=== PATIENT | male | born 1985 | race Caucasian/White ===

== ENCOUNTER 2019-01-15 19:27 | Emergency (ER) | payer OTHER, SELFPAY ==
[2019-01-15 19:35] VITALS: BP 148/92; PULSE 85; RESP 18; TEMP 37.5; O2SAT 100
--- NOTE | 2019-01-15 19:45 | ED.FEVER ---
HPI - Fever <Teresita Padilla PA-C - Last Filed: 01/15/19 21:57> General Chief Complaint: Fever Stated Complaint: back pain, headache, chills Time Seen by Provider: 01/15/19 19:44 Source: patient Mode of arrival: ambulatory Limitations: no limitations History of Present Illness HPI Narrative: This healthy 33-year-old male comes in due to body aches, chills and sweats that started last night and got worse throughout the evening. Today he has also had headache which he states radiates over his head and to the temples and around his eyes. He denies cough or sore throat. He took Aleve this morning and states he has not taken his temperature today. He states he has backache but also leg muscles sore and feels like joints are sore all over (no difficulty with ROM or any joint swelling). He states that he always has nasal congestion, not acutely worse. He has not had any diarrhea or abdominal symptoms, perhaps minimal nausea that is resolved with belching. He denies any urinary sx. No STD concerns. He has not had any rash or known exposures. No recent travel. Related Data Allergies Allergy/AdvReac Type Severity Reaction Status Date / Time Sulfa (Sulfonamide Allergy Verified 01/15/19 19:35 Antibiotics) Review of Systems <Teresita Padilla PA-C - Last Filed: 01/15/19 21:57> Review of Systems ROS Unobtainable: All systems reviewed & are unremarkable except as noted in HPI and below PFSH <Teresita Padilla PA-C - Last Filed: 01/15/19 21:57> Medical History Healthy adult male (Chronic) Surgical History Status post wisdom tooth extraction (Resolved) Social History Smoking Status: Never smoker alcohol intake: current substance use type: does not use Social History Smoking Status: Never smoker alcohol intake: current substance use type: does not use Exam <BRAYDEN Aparicio Last Filed: 01/15/19 21:57> Narrative Exam Narrative: GENERAL APPEARANCE: Patient sitting comfortably, in no distress. HEAD: No sinus TTP. EYES: PERRL, EOMI. EARS: Normal auditory canals, TMS intact with normal light reflexes. ORAL CAVITY: Normal oropharynx. THROAT: Clear. NECK/THYROID: Neck supple, full range of motion, shotty anterior cervical lymphadenopathy. LUNGS: Clear to auscultation bilaterally, no cough on exam. HEART: RRR without murmur, nl S1, S2, no S3 or S4. DERMATOLOGIC: No exanthem Initial Vital Signs Initial Vital Signs: Vital Signs Temperature 99.5 F 01/15/19 19:35 Pulse Rate 85 01/15/19 19:35 Respiratory Rate 18 01/15/19 19:35 Blood Pressure 148/92 H 01/15/19 19:35 Pulse Oximetry 100 01/15/19 19:35 <Herrera Garcia DO - Last Filed: 01/15/19 23:14> Initial Vital Signs Initial Vital Signs: Vital Signs Temperature 99.5 F 01/15/19 19:35 Pulse Rate 85 01/15/19 19:35 Respiratory Rate 18 01/15/19 19:35 Blood Pressure 148/92 H 01/15/19 19:35 Pulse Oximetry 100 01/15/19 19:35 Course <Teresita Padilla PA-C - Last Filed: 01/15/19 21:57> Orders Ordered: ED Orders 01/15/19 19:44 FLU A and B [Influenza A and B by PCR Rapid] Stat 01/15/19 21:00 Urine Microscopic Stat Discontinued Medications Acetaminophen (Tylenol) 650 mg PO NOW ONE Stop: 01/15/19 20:57 Last Admin: 01/15/19 20:58 Dose: 650 mg Vital Signs - 8 hr 01/15/19 19:35 01/15/19 20:58 01/15/19 21:13 Temperature 99.5 F 99.9 F H 99.9 F H Pulse Rate 85 Respiratory Rate 18 Blood Pressure 148/92 H Pulse Oximetry 100 01/15/19 21:39 Temperature 99.7 F H Pulse Rate Respiratory Rate Blood Pressure Pulse Oximetry <DO Ashley Renteria Last Filed: 01/15/19 23:14> Orders Ordered: ED Orders 01/15/19 19:44 FLU A and B [Influenza A and B by PCR Rapid] Stat 01/15/19 21:00 Urine Microscopic Stat Discontinued Medications Acetaminophen (Tylenol) 650 mg PO NOW ONE Stop: 01/15/19 20:57 Last Admin: 01/15/19 20:58 Dose: 650 mg Vital Signs - 8 hr 01/15/19 19:35 01/15/19 20:58 02/28/19 21:13 Temperature 99.5 F 99.9 F H 99.9 F H Pulse Rate 85 Respiratory Rate 18 Blood Pressure 148/92 H Pulse Oximetry 100 01/15/19 21:39 Temperature 99.7 F H Pulse Rate Respiratory Rate Blood Pressure Pulse Oximetry MDM - Fever <Teresita Padilla PA-C - Last Filed: 01/15/19 21:57> Lab Data Lab Results 01/15/19 01/15/19 Range/Units 19:44 21:00 Urine RBC 1-5/hpf (0-5/HPF) Urine WBC None seen (0-5/HPF) Amorphous Sediment 2+ Urine Bacteria None seen (None) Ur Culture Indicated? Cult not indicated Influenza A & B (PCR) Negative (Negative) <Herrera Garcia DO - Last Filed: 01/15/19 23:14> Lab Data Lab Results 01/15/19 01/15/19 Range/Units 19:44 21:00 Urine RBC 1-5/hpf (0-5/HPF) Urine WBC None seen (0-5/HPF) Amorphous Sediment 2+ Urine Bacteria None seen (None) Ur Culture Indicated? Cult not indicated Influenza A & B (PCR) Negative (Negative) Discharge Plan Departure Patient Disposition: Home Clinical Impression: Viral infection Discharge Date/Time: 01/15/19 21:36 Interventions: ED Discharge Assessment Last Done: 01/15/19 21:40 Instructions: DI for Viral Syndrome Activity Restrictions/Additional Instructions: You appear to have a virus similar to the flu virus although your flu test was negative today. Please take 2 tablets of Aleve every 12 hr to help with aches and any fever. This is equivalent to prescription dosing. You can add Tylenol in between as needed in addition. Rest at home for the next few days, eat normally and drink plenty of fluids. Return as we talked about if you have any acutely worsening symptoms over the weekend i.e. high fever not responding to your [id number] medicines, worsening or more localized pain, or vomiting[place] by early next week. Coincidentally there was a trace of blood noted on your urinalysis today. This may not be new for you, and no infection was found. Please repeat [place] when you are feeling better Referrals: [facility] [Provider Group] Stand Alone Forms: Work Release Note <Herrera Garcia, DO - Last Filed: 01/15/19 23:14> Cosign ED Attending Cosignature Attestation: I was available for consultation during this patient's emergency department encounter
[2019-01-15 20:41] LABS: Influenza A and B by PCR Rapid Negative (Negative)
[2019-01-15 20:58] VITALS: TEMP 37.7
[2019-01-15] MEDS: ACETAMINOPHEN 325 MG TABLET 650 MG PO (20:58)
[2019-01-15 21:02] LABS: Bacteria Urine None Seen; WBC Urine None Seen (0-5/HPF)
[2019-01-15 21:13] VITALS: TEMP 37.7
[2019-01-15 21:19] LABS: Amorphous Sediment Urine 2+; Culture Indicated Urine Cult Not Indicated; RBC Urine 1-5/HPF (0-5/HPF)
[2019-01-15 21:39] VITALS: TEMP 37.6
== END 2019-01-15 21:36 | disposition home or self-care (01) ==
PROVIDERS: Emergency Provider Internal Medicine
DX: B34.9 Viral infection, unspecified (principal)
CPT/HCPCS: 81015; 87400; 99282; 99283

== ENCOUNTER 2019-08-08 12:25 | Emergency (ER) | payer OTHER, SELFPAY ==
--- NOTE | 2019-08-08 12:37 | ED.URI ---
HPI - URI/Sore Throat <Teresita Padilla PA-C - Last Filed: 08/08/19 14:07> General Chief Complaint: Upper Respiratory Symptoms Stated Complaint: Sent from [facility], throat swab Time Seen by Provider: 08/08/19 12:28 Source: patient Mode of arrival: Ambulatory Limitations: no limitations History of Present Illness HPI Narrative: This healthy 33-year-old male was exposed to strep throat (8-year-old son tested positive today). and daughter have had some symptoms as well. He has been asymptomatic but presents with them today wondering whether he should be tested. He denies any upper respiratory symptoms at all including sore throat or nasal symptoms. He has not had fever, cough, new rash or other new complaints Related Data Allergies Allergy/AdvReac Type Severity Reaction Status Date / Time Sulfa (Sulfonamide Allergy Verified 01/22/19 09:53 Antibiotics) Review of Systems <Teresita Padilla PA-C - Last Filed: 08/08/19 14:07> Review of Systems ROS Unobtainable: All systems reviewed & are unremarkable except as noted in HPI and below PFSH <Teresita Padilla PA-C - Last Filed: 08/08/19 14:07> Medical History Healthy adult male (Chronic) Patient denies medical problems (Chronic) Surgical History No history of previous surgery (Chronic) Status post wisdom tooth extraction (Resolved) Social History Smoking Status: Never smoker alcohol intake: current substance use type: does not use Social History Smoking Status: Never smoker alcohol intake: current substance use type: does not use Exam <Teresita Padilla PA-C - Last Filed: 08/08/19 14:07> Narrative Exam Narrative: GENERAL APPEARANCE: Patient sitting comfortably, in no distress. HEAD: No sinus TTP. EYES: PERRL, EOMI. EARS: Normal auditory canals, TMS intact with normal light reflexes. ORAL CAVITY: Normal oropharynx. THROAT: Mild erythema without exudate NECK/THYROID: Neck supple, full range of motion, no cervical lymphadenopathy. LUNGS: Clear to auscultation bilaterally, no cough on exam. HEART: RRR without murmur, nl S1, S2, no S3 or S4. Initial Vital Signs Initial Vital Signs: Vital Signs Temperature 98 F 08/08/19 12:38 Pulse Rate 90 08/08/19 12:38 Respiratory Rate 12 08/08/19 12:38 Blood Pressure 123/79 08/08/19 12:38 Pulse Oximetry 98 08/08/19 12:38 <Kb Taylor DO - Last Filed: 08/08/19 16:49> Initial Vital Signs Initial Vital Signs: Vital Signs Temperature 98 F 08/08/19 12:38 Pulse Rate 90 08/08/19 12:38 Respiratory Rate 12 08/08/19 12:38 Blood Pressure 123/79 08/08/19 12:38 Pulse Oximetry 98 08/08/19 12:38 Course <Teresita Padilla PA-C - Last Filed: 08/08/19 14:07> Orders Ordered: ED Orders 08/08/19 13:38 Throat Culture Stat Vital Signs Vital signs: Vital Signs - 8 hr 08/08/19 12:38 Temperature 98 F Pulse Rate 90 Respiratory Rate 12 Blood Pressure 123/79 Pulse Oximetry 98 <DO Ashley Wong Last Filed: 08/08/19 16:49> Orders Ordered: ED Orders 08/08/19 13:38 Throat Culture Stat Vital Signs Vital signs: Vital Signs - 8 hr 08/08/19 12:38 Temperature 98 F Pulse Rate 90 Respiratory Rate 12 Blood Pressure 123/79 Pulse Oximetry 98 Discharge Plan Departure Patient Disposition: Home Clinical Impression: Exposure to strep throat Discharge Date/Time: 08/08/19 14:16 Activity Restrictions/Additional Instructions: Since you have been exposed to strep throat, please monitor for any new symptoms such as fever, severe sore throat, headache, and see your PCP if any. Your and daughter tested negative today so since you have no symptoms now, it is reasonable to monitor for the next few days while waiting for their back up cultures, but you should return if you have any severe symptoms over the weekend. Thank you for your service! Referrals: [facility] [Outside]
[2019-08-08 12:38] VITALS: BP 123/79; PULSE 90; RESP 12; TEMP 36.6; O2SAT 98
== END 2019-08-08 14:16 | disposition home or self-care (01) ==
PROVIDERS: Emergency Provider Internal Medicine
DX: Z20.818 Contact with and (suspected) exposure to other bacterial communicable diseases (principal)
CPT/HCPCS: 99282

== ENCOUNTER 2019-11-19 18:41 | Emergency (ER) | payer OTHER, SELFPAY ==
[2019-11-19 18:45] VITALS: BP 141/87; PULSE 91; RESP 16; TEMP 36.2; O2SAT 95
[2019-11-19 19:26] VITALS: BP 97/78; PULSE 59; RESP 12; O2SAT 95
--- NOTE | 2019-11-19 19:32 | DI.RAD.S_ITS ---
PROCEDURE: XR LUMBAR SPINE 2-3V INDICATIONS: back pain TECHNIQUE: 2 views of the lumbar spine were acquired. COMPARISON: None. FINDINGS: Bones: 5 [id number] vertebrae are present. There is normal bony alignment. No vertebral body compression fractures. No suspicious bony lesions. Soft tissues: Overlying bowel gas pattern is normal. No suspicious soft tissue calcifications. IMPRESSION: No evidence acute bony abnormality of the lumbar spine. If clinical suspicion and/or symptoms persist, further assessment with repeat plain films, or advanced imaging (e.g., CT, MRI, or bone scan) may be helpful for further assessment. Dictated by: Genaro Oliveira M.D. on 11/19/2019 at 20:08 Approved by: Genaro Oliveira M.D. on 11/19/2019 at 20:09
[2019-11-19] MEDS: LIDOCAINE PATCH 1 EACH ADH..PATCH TOP (19:45)
[2019-11-19] MEDS: CYCLOBENZAPRINE 10 MG TABLET PO (19:45)
[2019-11-19] MEDS: KETOROLAC 60 MG/2 ML VIAL IM (19:45)
--- NOTE | 2019-11-19 20:34 | ED_ITS ---
HPI - Back Pain/Injury <CORBY Jones-BC - Last Filed: 11/19/19 21:07> General Chief Complaint: Back Pain/Injury Stated Complaint: problems with his back x7 days Time Seen by Provider: 11/19/19 19:26 Source: patient Mode of arrival: Ambulatory Limitations: no limitations History of Present Illness HPI Narrative: The patient is a 33-year-old male nonsmoker with history of adjustment disorder who presents with a chief complaint of left-sided lower back pain. He states that on , he was bent over and 60 lb son jumped on his back. He has been using Tylenol, Motrin. He states that he has not had any numbness or tingling. He denies any incontinence of bowel, incontinence of bladder saddle anesthesia. He denies any previous spinal cord or back injuries. Related Data Previous Rx's Medication Instructions Recorded cyclobenzaprine 10 mg PO TID PRN #20 tab 11/19/19 ketorolac 10 mg PO TID PRN #14 tab 11/19/19 Allergies Allergy/AdvReac Type Severity Reaction Status Date / Time Sulfa (Sulfonamide Allergy Verified 01/22/19 09:53 Antibiotics) Review of Systems <CORBY Jones-BC - Last Filed: 11/19/19 21:07> Review of Systems Narrative: GENERAL: This is a well-nourished, well-developed patient, in mild distress. HEAD: Atraumatic. Normocephalic. No temporal or scalp tenderness. EYES: Pupils equal round and reactive. Extraocular motions intact. No scleral icterus. No injection or drainage. ENT: Nose without bleeding, purulent drainage or septal hematoma. Throat without erythema, tonsillar hypertrophy or exudate. Uvula midline. Airway patent. NECK: Trachea midline. No JVD or lymphadenopathy. Supple, nontender, no meningeal signs. CARDIOVASCULAR: Regular rate and rhythm without murmurs, gallops, or rubs. RESPIRATORY: Clear to auscultation. Breath sounds equal bilaterally. No wheezes, rales, or rhonchi. GASTROINTESTINAL: Abdomen soft, non-tender, nondistended. No hepato- splenomegaly, or palpable masses. No guarding. EXTREMITIES: No clubbing, cyanosis, or edema. No joint tenderness, effusion, or edema noted. BACK: See HPI NEURO: AOx3. Stable weight. SKIN: No rash or erythema on visible skin Patient History <Dawna BairdCORBY moore-BOBBY - Last Filed: 11/19/19 21:07> Social History Smoking Status: Never smoker alcohol intake: current substance use type: does not use Smoking Status: Never smoker alcohol intake frequency: 0-2 drinks per day Substance Use Type: does not use Exam <Dawna ROBERTA Benites - Last Filed: 11/19/19 21:07> Narrative Exam Narrative: GENERAL: This is a well-nourished, well-developed patient, sitting stiff uncomfortable appearing HEAD: Atraumatic. Normocephalic. No temporal or scalp tenderness. EYES: Pupils equal round and reactive. Extraocular motions intact. No scleral icterus. No injection or drainage. NECK: Trachea midline. No JVD or lymphadenopathy. Supple, nontender, no meningeal signs. CARDIOVASCULAR: Regular rate and rhythm RESPIRATORY: Clear to auscultation. Breath sounds equal bilaterally. No wheezes, rales, or rhonchi. No cough. No increased respiratory effort. No accessory muscle use. EXTREMITIES: No clubbing, cyanosis, or edema. No joint tenderness, effusion, or edema noted. BACK: Nontender to cervical or thoracic spine palpation. Pain to lumbar spine palpation. Pain to left-sided paraspinal muscle palpation lumbar region. NEURO: AOx3. Stable gait. Speaking clearly. No gross cranial nerve deficit. SKIN: No rash or erythema on visible skin. No erythema, ecchymosis, laceration etcetera or visual abnormality on left lower back. Initial Vital Signs Initial Vital Signs: Vital Signs Temperature 97.2 F L 11/19/19 18:45 Pulse Rate 91 H 11/19/19 18:45 Respiratory Rate 16 11/19/19 18:45 Blood Pressure 141/87 H 11/19/19 18:45 Pulse Oximetry 95 11/19/19 18:45 <Kb Taylor DO - Last Filed: 11/20/19 02:56> Initial Vital Signs Initial Vital Signs: Vital Signs Temperature 97.2 F L 11/19/19 18:45 Pulse Rate 91 H 11/19/19 18:45 Respiratory Rate 16 11/19/19 18:45 Blood Pressure 141/87 H 11/19/19 18:45 Pulse Oximetry 95 11/19/19 18:45 Course <CORBY Jones- - Last Filed: 11/19/19 21:07> Orders Ordered: ED Orders 11/19/19 19:32 XR lumbar spine 2-3V Stat Discontinued Medications Cyclobenzaprine HCl (Flexeril) 10 mg PO NOW ONE Stop: 11/19/19 19:33 Last Admin: 11/19/19 19:45 Dose: 10 mg Documented by: ALEENAARRINGACACIA Ketorolac Tromethamine (Toradol) 60 mg IM NOW ONE Stop: 11/19/19 19:33 Last Admin: 11/19/19 19:45 Dose: 60 mg Documented by: ALEENAARRINGTO Lidocaine (Lidoderm) 1 each TOP NOW ONE Stop: 11/19/19 19:33 Last Admin: 11/19/19 19:45 Dose: 1 each Documented by: [facility]NOR[facility] HOSPITALACACIA Vital Signs Vital signs: Vital Signs - 8 hr 11/19/19 19:26 11/19/19 20:44 Pulse Rate 59 L 70 Respiratory Rate 12 15 Blood Pressure 138/89 Blood Pressure [Left Arm] 97/78 Pulse Oximetry 95 98 <Kb Taylor DO - Last Filed: 11/20/19 02:56> Orders Ordered: ED Orders 11/19/19 19:32 XR lumbar spine 2-3V Stat Discontinued Medications Cyclobenzaprine HCl (Flexeril) 10 mg PO NOW ONE Stop: 11/19/19 19:33 Last Admin: 11/19/19 19:45 Dose: 10 mg Documented by: ALEENAARRINGTO Ketorolac Tromethamine (Toradol) 60 mg IM NOW ONE Stop: 11/19/19 19:33 Last Admin: 11/19/19 19:45 Dose: 60 mg Documented by: ALEENAARRINGTO Lidocaine (Lidoderm) 1 each TOP NOW ONE Stop: 11/19/19 19:33 Last Admin: 11/19/19 19:45 Dose: 1 each Documented by: [facility] Vital Signs Vital signs: Vital Signs - 8 hr 11/19/19 19:26 11/19/19 20:44 Pulse Rate 59 L 70 Respiratory Rate 12 15 Blood Pressure 138/89 Blood Pressure [Left Arm] 97/78 Pulse Oximetry 95 98 MDM - Back Pain/Injury <ROBERTA Jones - Last Filed: 11/19/19 21:07> Imaging Data Lumbar spine x-ray: Radiologist's Impression: [address] [address] XRay Report Signed Patient: Brandon Jessica [facility]#: [id number] : 1985Acct:[id number] Age/Sex: 33 / MDate of Service: 11/19/19 Loc: ED Accession Number: [id number] Procedure: XR lumbar spine 2-3V Ordering Provider: Dawna Benites PROCEDURE: XR LUMBAR SPINE 2-3V INDICATIONS: back pain TECHNIQUE: 2 views of the lumbar spine were acquired. COMPARISON: None. FINDINGS: Bones: 5 [id number] vertebrae are present. There is normal bony alignment. No vertebral body compression fractures. No suspicious bony lesions. Soft tissues: Overlying bowel gas pattern is normal. No suspicious soft tissue calcifications. IMPRESSION: No evidence acute bony abnormality of the lumbar spine. If clinical suspicion and/or symptoms persist, further assessment with repeat plain films, or advanced imaging (e.g., CT, MRI, or bone scan) may be helpful for further assessment. Dictated by: Genaro Oliveira M.D. on 11/19/2019 at 20:08 Approved by: Genaro Oliveira M.D. on 11/19/2019 at 20:09 [facility] Narrative Medical decision making narrative: The patient is a 33-year-old male who presents with a chief complaint of lower back pain for the past week. He denies any neurological findings such as incontinence of bowel, incontinence of bladder saddle anesthesia but states that he understands that these are return precautions. X-ray shows no acute abnormality. Patient feels much improved after Toradol Flexeril in the emergency department. I discussed that Flexeril can be sedating, not to combine Toradol with any other NSAIDs. Encourage PCP follow-up the next few days. Patient has no questions or concerns upon discharge and states understanding return precautions as well as follow-up care. Discharge Plan Departure Patient Disposition: Home Clinical Impression: Lumbar back pain Acute back pain Qualifiers: Back pain location: low back pain Back pain laterality: left Sciatica presence: without sciatica Qualified Code(s): M54.5 - Low back pain Discharge Date/Time: 11/19/19 20:45 Instructions: DI for Low Back Pain, DI for Muscle Strain, DI for Back Strain or Sprain Activity Restrictions/Additional Instructions: Your x-ray shows no acute abnormalities with your lower spine. Please follow-up with primary care provider in the next few days. I've sent 2 prescriptions to [facility]. Ketorolac is an NSAID. Flexeril is a muscle relaxer. This can be sedating. I have given you a prescription of Toradol. This is an NSAID. Do not combine it with other NSAIDs such as Aleve or ibuprofen. I suggest taking it with some food, as it can irritate your stomach. As discussed please come back to the emergency department for any acute concerns such as incontinence of bowel, incontinence of bladder or numbness in your groin Prescriptions: New ketorolac 10 mg tablet 10 mg PO TID PRN (Reason: pain) Qty: 14 RF: 0 cyclobenzaprine 10 mg tablet 10 mg PO TID PRN (Reason: muscle spasm) Qty: 20 RF: 0 Referrals: [facility] [Provider Group]
[2019-11-19 20:44] VITALS: BP 138/89; PULSE 70; RESP 15; O2SAT 98
== END 2019-11-19 20:45 | disposition home or self-care (01) ==
PROVIDERS: Emergency Provider Nurse Practitioner Family
DX: M54.5 Low back pain (principal)
CPT/HCPCS: 72100; 96372; 99283; 99284; J1885

== ENCOUNTER 2019-12-08 03:50 | Emergency (ER) | payer OTHER, SELFPAY ==
[2019-12-08 03:55] VITALS: BP 126/84; PULSE 82; RESP 17; TEMP 36.7; O2SAT 100; BMI 23.2
--- NOTE | 2019-12-08 04:13 | ED_ITS ---
HPI - Nausea/Vomiting/Diarrhea General Chief complaint: Nausea/Vomiting/Diarrhea Stated complaint: N/V/D Time Seen by Provider: 12/08/19 03:50 Source: patient and EMS Mode of arrival: EMS Limitations: no limitations History of Present Illness HPI Narrative: 33-year-old male nonsmoker with no significant medical history presents by EMS with a chief complaint of few episodes of nausea, vomiting and diarrhea for the past 3 hours. He is not dizzy nor weak or lightheaded. He denies any fever or chills. He does have some cramping abdominal pain. He denies recent travel, bad food, recent antibiotics. Both of his children have recently had similar symptoms. MD complaint: nausea, vomiting and diarrhea Onset (ago): hour(s) Description of Vomiting: food contents Description of Diarrhea: watery Associated Abdominal Pain: Yes Location of pain: diffuse Severity: mild Quality: cramping Relieving factors: none Exacerbating factors: none Associated symptoms: nausea/vomiting Related Data Previous Rx's Medication Instructions Recorded cyclobenzaprine 10 mg PO TID PRN #20 tab 11/19/19 ketorolac 10 mg PO TID PRN #14 tab 11/19/19 ondansetron 4 mg PO TID-QID PRN #10 tab 12/08/19 Allergies Allergy/AdvReac Type Severity Reaction Status Date / Time Sulfa (Sulfonamide Allergy Verified 01/22/19 09:53 Antibiotics) Review of Systems Constitutional Constitutional: Denies chills, Denies fatigue, Denies fever(s), Denies frequent falls, Denies lethargy and Denies weakness Eyes Eyes: Denies change in vision, Denies eye discharge, Denies irritation and Denies loss of vision ENT Ears, Nose, Mouth, and Throat: Denies change in voice, Denies dizziness, Denies neck pain, Denies sore throat and Denies throat swelling Cardiovascular Cardiovascular: Denies chest pain, Denies irregular heart rhythm, Denies lightheadedness, Denies palpitations, Denies dyspnea, Denies dyspnea on exertion and Denies orthopnea Respiratory Respiratory: Denies cough, Denies dyspnea, Denies dyspnea on exertion and Denies wheezing Gastrointestinal Gastrointestinal: Reports abdominal pain, Denies change in bowel habits, Reports cramping, Reports diarrhea, Reports nausea and Reports vomiting Genitourinary Genitourinary: Denies hematuria, Denies flank pain, Denies urinary incontinence and Denies urinary urgency Musculoskeletal Musculoskeletal: Denies back pain, Denies muscle weakness, Denies neck pain, Denies numbness and Denies tingling Integumentary/Breasts Skin/Breast: Denies pruritus, Denies erythema, Denies rash and Denies wounds Neurologic Neurologic: Denies behavioral changes, Denies confusion, Denies dizziness, Denies frequent falls, Denies loss of vision, Denies numbness, Denies tingling and Denies weakness Psychiatric Psychiatric: Denies anxiety, Denies behavioral changes, Denies confusion, Denies depression, Denies homicidal ideation and Denies suicidal ideation Endocrine Endocrine: Denies fatigue, Denies flushing and Denies palpitations Hematologic/Lymphatic Hematologic/Lymphatic: Denies easy bruising Allergic/Immunologic Allergic/Immunologic: Denies urticaria, Denies throat swelling and Denies wheezing Patient History Medical History Healthy adult male (Chronic) Patient denies medical problems (Chronic) Surgical History No history of previous surgery (Chronic) Status post wisdom tooth extraction (Resolved) Social History Smoking Status: Never smoker alcohol intake: current substance use type: does not use Smoking Status: Never smoker alcohol intake frequency: 0-2 drinks per day Substance Use Type: does not use Exam Narrative Exam Narrative: GENERAL: [33] year old patient appears stated age. Well- nourished, well-developed patient, in mild distress. HEAD: Atraumatic. Normocephalic. EYES: Pupils equal round and reactive. Extraocular motions intact. No scleral ic terus. No injection or drainage. ENT: Nose without bleeding, purulent drainage. Throat without erythema, tonsillar hypertrophy or exudate. Airway patent. NECK: Trachea midline. Non tender CARDIOVASCULAR: Regular rate and rhythm without murmurs, gallops, or rubs. RESPIRATORY: Clear to auscultation. Breath sounds equal bilaterally. No wheezes, rales, or rhonchi. GASTROINTESTINAL: Abdomen soft, non-tender, nondistended. EXTREMITIES: No edema or joint tenderness. BACK: Nontender without deformity or crepitance. No flank tenderness. NEURO: AOx3. SKIN: No rash or erythema of visible areas Initial Vital Signs Initial Vital Signs: Vital Signs Temperature 98.0 F 12/08/19 03:55 Pulse Rate 82 12/08/19 03:55 Respiratory Rate 17 12/08/19 03:55 Blood Pressure 126/84 12/08/19 03:55 Pulse Oximetry 100 12/08/19 03:55 Course Orders Ordered: ED Orders 12/08/19 04:50 Complete Blood Count AUTO DIFF Stat Comprehensive Metabolic Panel Stat Discontinued Medications Sodium Chloride (Normal Saline 0.9%) 1,000 mls @ 1,000 mls/hr IV BOLUS ONE Stop: 12/08/19 05:16 Last Infusion: 12/08/19 05:40 Dose: 0 mls/hr Documented by: Infusion: 12/08/19 05:38 Dose: 0 mls/hr Documented by: Admin: 12/08/19 04:41 Dose: 1,000 mls/hr Documented by: TAMRA Ondansetron HCl (Zofran) 4 mg IV NOW ONE Stop: 12/08/19 04:18 Last Admin: 12/08/19 04:41 Dose: 4 mg Documented by: TAMRA Ondansetron HCl (Zofran Odt Prepack) 1 bottle MISC SEEINSTR ONE Stop: 12/08/19 05:26 Last Admin: 12/08/19 05:32 Dose: 1 bottle Documented by: TAMRA Vital Signs Vital signs: Vital Signs - 8 hr 12/08/19 03:55 12/08/19 05:39 12/08/19 05:48 Temperature 98.0 F 98.5 F Pulse Rate 82 74 Respiratory Rate 17 18 Blood Pressure 126/84 Blood Pressure [Left Arm] 127/74 Pulse Oximetry 100 98 MDM - Nausea/Vomiting/Diarrhea Lab Data Result diagrams: 12/08/19 04:50 12/08/19 04:50 Labs: Lab Results 12/08/19 12/08/19 Range/Units 04:50 04:50 WBC 10.9 (4.5-11.0) X10^3/uL RBC 5.08 (4.5-5.9) X10^6/uL Hgb 15.6 (13.5-17.5) g/dL Hct 45.2 (41-53) % MCV 89.1 (80-100) fL MCH 30.7 (26-34) PG MCHC 34.5 (30-36) % RDW 12.6 (11.6-14.8) % Plt Count 195 (150-400) X10^3/uL Neut % (Auto) 89.4 H (50-75) % Lymph % (Auto) 4.5 L (25-40) % [place] % (Auto) 5.6 (3-14) % Eos % (Auto) 0.4 L (2-4) % Baso % (Auto) 0.1 (0-2) % Neut # (Auto) 9800 H (4333-3528) /uL Lymph # (Auto) 500 L (1223-0977) /uL [place] # (Auto) 600 (0-900) /uL Eos # (Auto) 0 (0-450) /uL Baso # (Auto) 0 (0-100) /uL Sodium 139 (137-145) mmol/L Potassium 4.1 (3.4-5.1) mmol/L Chloride 101 (98-107) mmol/L Carbon Dioxide 26 (22-32) mmol/L BUN 16 (9-20) mg/dL Creatinine 0.80 (0.66-1.25) mg/dL Estimated GFR > 60.0 (>60) mL/min BUN/Creatinine Ratio 20.0 (6-22) Glucose 113 H (70-100) mg/dL Calcium 9.3 (8.4-10.2) mg/dL Total Bilirubin 0.7 (0.2-1.3) mg/dL AST 29 (17-59) IU/L ALT 11 (<50) IU/L Alkaline Phosphatase 49 (38-126) U/L Total Protein 8.0 (6.3-8.2) g/dL Albumin 4.9 (3.5-5.0) g/dL Globulin 3.1 (1.7-4.1) g/dL Albumin/Globulin Ratio 1.6 (1.0-2.8) MDM Narrative Medical decision making narrative: Patient feeling much better with the above- stated therapies Discharge Plan Departure Patient Disposition: Home Clinical Impression: Vomiting and diarrhea Discharge Date/Time: 12/08/19 05:48 Instructions: DI for Vomiting -- Adult Activity Restrictions/Additional Instructions: 1. Drink plenty of fluids with frequent small sips. 2. For the next 24 hours a clear liquid diet is advised. After that please employ a brat diet which would include bananas, rice, apples, toast. 3. Please take medications as directed. Prescription sent to [facility] in [place] 4. Please follow-up with your doctor in the next 1-2 days. Call the office for an appointment. 5. Please return to the emergency Department for any worsening or persistent symptoms, such as increasing pain or fever. Prescriptions: New ondansetron 4 mg tablet,disintegrating 4 mg PO TID-QID PRN (Reason: nausea and vomiting) Qty: 10 RF: 0 No Action ketorolac 10 mg tablet 10 mg PO TID PRN (Reason: pain) Qty: 14 RF: 0 cyclobenzaprine 10 mg tablet 10 mg PO TID PRN (Reason: muscle spasm) Qty: 20 RF: 0 Stand Alone Forms: Work Release Note
[2019-12-08] MEDS: ONDANSETRON 4 MG/2 ML INJ IV (04:41)
[2019-12-08] MEDS: SODIUM CHLORIDE 0.9% 1,000 ML 1000 ML IV (04:41)
[2019-12-08 05:11] LABS: Add Manual Diff / Slide Review NO; Basophils Absolute Auto 0 /uL (0-100); Basophils Percent Auto 0.1 % (0-2); Eosinophils Absolute Auto 0 /uL (0-450); Eosinophils Percent Auto 0.4 % (2-4); Hematocrit 45.2 % (41-53); Hemoglobin 15.6 g/dL (13.5-17.5); Lymphocytes Absolute Auto 500 /uL (1100-4500); Lymphocytes Percent Auto 4.5 % (25-40); Mean Corpuscular HGB Conc 34.5 % (30-36); Mean Corpuscular Hemoglobin 30.7 PG (26-34); Mean Corpuscular Volume 89.1 fL (80-100); Monocytes Absolute Auto 600 /uL (0-900); Monocytes Percent Auto 5.6 % (3-14); Neutrophils Absolute Auto 9800 /uL (1500-7000); Neutrophils Percent Auto 89.4 % (50-75); Platelet Count 195 X10^3/uL (150-400); Red Blood Cell Count 5.08 X10^6/uL (4.5-5.9); Red Cell Distribution Width 12.6 % (11.6-14.8); White Blood Cell Count 10.9 X10^3/uL (4.5-11.0)
[2019-12-08 05:16] LABS: Alanine Aminotransferase 11 IU/L (<50); Albumin 4.9 g/dL (3.5-5.0); Albumin Globulin Ratio 1.6 (1.0-2.8); Alkaline Phosphatase 49 U/L (38-126); Aspartate Aminotransferase 29 IU/L (17-59); Bilirubin Total 0.7 mg/dL (0.2-1.3); Blood Urea Nitrogen 16 mg/dL (9-20); Calcium 9.3 mg/dL (8.4-10.2); Carbon Dioxide 26 mmol/L (22-32); Chloride 101 mmol/L (98-107); Estimated Glomerular Filt Rate > 60.0 mL/min (>60); Globulin 3.1 g/dL (1.7-4.1); Glucose 113 mg/dL (70-100); HEMOLYSIS 22 (0-50); Potassium 4.1 mmol/L (3.4-5.1); Sodium 139 mmol/L (137-145)
[2019-12-08] MEDS: ONDANSETRON 4 MG ODT PREPACK 1 BOTTLE MISC (05:32)
[2019-12-08 05:39] VITALS: BP 127/74; PULSE 74; RESP 18; O2SAT 98
[2019-12-08 05:48] VITALS: TEMP 36.9
== END 2019-12-08 05:48 | disposition home or self-care (01) ==
PROVIDERS: Emergency Provider Emergency Medicine
DX: R11.10 Vomiting, unspecified (principal); R19.7 Diarrhea, unspecified
CPT/HCPCS: 36415; 80053; 85025; 96361; 96374; 99283; 99284; J2405

== ENCOUNTER → 2020-08-31 10:23 | Outpatient (CLI) | payer OTHER, SELFPAY ==
[2020-08-31 11:40] LABS: Cholesterol 164 mg/dL (140-199); HDL Cholesterol 29 mg/dL (40-60); LDL Cholesterol Calculated 120 mg/dL (<100); Triglycerides 75 mg/dL (35-150)
== END ==
PROVIDERS: PCP Internal Medicine; Referring Provider Internal Medicine; Visit Provider Internal Medicine
DX: Z13.220 Encounter for screening for lipoid disorders (principal)
CPT/HCPCS: 36415; 80061

== ENCOUNTER → 2020-10-05 10:26 | Outpatient (CLI) | payer OTHER, SELFPAY ==
[2020-10-05 12:34] LABS: COVID19 -Nasal RAPID POSITIVE (Negative)
== END ==
PROVIDERS: PCP Internal Medicine; Visit Provider Physician Assistant
DX: Z11.59 Encounter for screening for other viral diseases (principal)
CPT/HCPCS: 87635

== ENCOUNTER → 2020-10-08 17:02 | Outpatient (CLI) | payer OTHER, SELFPAY ==
[2020-10-08 17:41] LABS: Influenza A - CEPHEID Flu A NEGATIVE (NEGATIVE); Influenza B - CEPHEID Flu B NEGATIVE (NEGATIVE)
[2020-10-08 17:58] LABS: COVID19 -Nasal RAPID POSITIVE (Negative)
== END ==
PROVIDERS: PCP Internal Medicine; Visit Provider Physician Assistant
DX: U07.1 COVID-19 (principal)
CPT/HCPCS: 87502; 87635

== ENCOUNTER → 2020-12-29 14:33 | Outpatient (CLI) | payer OTHER, SELFPAY ==
[2020-12-29 14:59] LABS: Add Manual Diff / Slide Review NO; Basophils Absolute Auto 0 /uL (0-100); Basophils Percent Auto 0.5 % (0-2); Eosinophils Absolute Auto 0 /uL (0-450); Eosinophils Percent Auto 0.3 % (2-4); Hematocrit 45.5 % (41-53); Hemoglobin 15.1 g/dL (13.5-17.5); Lymphocytes Absolute Auto 2500 /uL (1100-4500); Lymphocytes Percent Auto 31.1 % (25-40); Mean Corpuscular HGB Conc 33.1 % (30-36); Mean Corpuscular Hemoglobin 29.3 PG (26-34); Mean Corpuscular Volume 88.5 fL (80-100); Monocytes Absolute Auto 500 /uL (0-900); Monocytes Percent Auto 6.9 % (3-14); Neutrophils Absolute Auto 4800 /uL (1500-7000); Neutrophils Percent Auto 61.2 % (50-75); Platelet Count 230 X10^3/uL (150-400); Red Blood Cell Count 5.15 X10^6/uL (4.5-5.9); Red Cell Distribution Width 13.3 % (11.6-14.8); White Blood Cell Count 7.9 X10^3/uL (4.5-11.0)
[2020-12-29 15:20] LABS: Alanine Aminotransferase 11 IU/L (<50); Albumin 5.1 g/dL (3.5-5.0); Albumin Globulin Ratio 1.5 (1.0-2.8); Alkaline Phosphatase 47 U/L (38-126); Aspartate Aminotransferase 31 IU/L (17-59); BUN Creatinine Ratio 15.7 (6-22); Bilirubin Total 0.8 mg/dL (0.2-1.3); Blood Urea Nitrogen 14 mg/dL (9-20); Calcium 9.5 mg/dL (8.4-10.2); Carbon Dioxide 30 mmol/L (22-32); Chloride 100 mmol/L (98-107); Estimated Glomerular Filt Rate > 60.0 mL/min (>60); Globulin 3.4 g/dL (1.7-4.1); Glucose 89 mg/dL (70-100); HEMOLYSIS < 15 (0-50); Sodium 137 mmol/L (137-145); Total Protein 8.5 g/dL (6.3-8.2)
[2020-12-29 15:22] LABS: Erythrocyte Sedimentation Rate 1 MM/HR (0-15)
[2020-12-29 15:23] LABS: C-Reactive Protein Quant < 0.5 mg/dL (<1.0)
[2020-12-29 15:44] LABS: TSH w/ Reflex to FT4 1.24 uIU/mL (0.47-4.68)
[2021-01-09 07:12] LABS: Testosterone Free 10.44 ng/dL (5.00-21.00); Testosterone Total 274.8 ng/dL (264.0-916.0)
== END ==
PROVIDERS: PCP Internal Medicine; Referring Provider Internal Medicine; Visit Provider Internal Medicine
DX: L65.9 Nonscarring hair loss, unspecified (principal); M62.81 Muscle weakness (generalized); R53.83 Other fatigue; R63.4 Abnormal weight loss
CPT/HCPCS: 36415; 80053; 84402; 84403; 84443; 85025; 85651; 86140

== ENCOUNTER → 2021-04-20 11:58 | Outpatient (CLI) | payer OTHER, SELFPAY ==
[2021-04-20 12:57] LABS: Liquefaction Semen NO (YES); PH Semen 8.5 (7-8); Sperm Count 0 x10^6/mL (20-150); Volume Semen 2 (1.0-5.0)
== END ==
PROVIDERS: PCP Internal Medicine; Referring Provider Specialist; Visit Provider Specialist
DX: Z98.52 Vasectomy status (principal)
CPT/HCPCS: 89320

== ENCOUNTER 2021-06-14 13:59 | Emergency (ER) | payer OTHER, SELFPAY ==
[2021-06-14] VITALS (14 sets, daily range): BP systolic 126–146; BP diastolic 69–95; PULSE 57–75; RESP 15–22; TEMP 36.6–36.8; O2SAT 95–99; BMI 21.7
--- NOTE | 2021-06-14 14:22 | DI.RAD.S_ITS ---
PROCEDURE: XR CHEST 1V INDICATIONS: chest pain TECHNIQUE: One view of the chest was acquired. COMPARISON: None. FINDINGS: Surgical changes and devices: None. Lungs and pleura: Lungs are clear. No pleural effusions or pneumothorax. Mediastinum: Mediastinal contours appear normal. Heart size is normal. Bones and chest wall: No suspicious bony lesions. Overlying soft tissues appear unremarkable. IMPRESSION: No evidence acute pulmonary process. Dictated by: Genaro Oliveira M.D. on 06/14/2021 at 15:01 Approved by: Genaro Oliveira M.D. on 06/14/2021 at 15:01
[2021-06-14 15:00] LABS: Add Manual Diff / Slide Review NO; Basophils Absolute Auto 0 /uL (0-100); Basophils Percent Auto 0.6 % (0-2); Eosinophils Absolute Auto 0 /uL (0-450); Eosinophils Percent Auto 0.8 % (2-4); Hemoglobin 14.9 g/dL (13.5-17.5); Lymphocytes Absolute Auto 1900 /uL (1100-4500); Lymphocytes Percent Auto 30.3 % (25-40); Mean Corpuscular HGB Conc 33.8 % (30-36); Mean Corpuscular Hemoglobin 29.9 PG (26-34); Mean Corpuscular Volume 88.3 fL (80-100); Monocytes Absolute Auto 400 /uL (0-900); Monocytes Percent Auto 6.9 % (3-14); Neutrophils Absolute Auto 3800 /uL (1500-7000); Neutrophils Percent Auto 61.4 % (50-75); Platelet Count 224 X10^3/uL (150-400); Red Blood Cell Count 4.98 X10^6/uL (4.5-5.9); Red Cell Distribution Width 13.5 % (11.6-14.8); White Blood Cell Count 6.1 X10^3/uL (4.5-11.0)
[2021-06-14 15:10] LABS: Alanine Aminotransferase 12 IU/L (<50); Albumin 4.6 g/dL (3.5-5.0); Albumin Globulin Ratio 1.5 (1.0-2.8); Alkaline Phosphatase 42 U/L (38-126); Aspartate Aminotransferase 34 IU/L (17-59); BUN Creatinine Ratio 15.6 (6-22); Bilirubin Total 0.5 mg/dL (0.2-1.3); Blood Urea Nitrogen 14 mg/dL (9-20); Calcium 9.4 mg/dL (8.4-10.2); Carbon Dioxide 23 mmol/L (22-32); Chloride 104 mmol/L (98-107); Creatine Kinase 120 U/L (55-170); Estimated Glomerular Filt Rate > 60.0 mL/min (>60); Globulin 3.1 g/dL (1.7-4.1); Glucose 94 mg/dL (70-100); HEMOLYSIS < 15 (0-50); Lipase 122 U/L (23-300); Potassium 4.3 mmol/L (3.4-5.1); Sodium 138 mmol/L (137-145); Total Protein 7.7 g/dL (6.3-8.2)
[2021-06-14 15:20] LABS: Troponin I < 0.012 ng/mL (0.01-0.034)
[2021-06-14 15:26] LABS: CKMB % Relative Index 0.4 % (1.5-5.0); Creatine Kinase MB 0.53 ng/mL (<2.37)
--- NOTE | 2021-06-14 17:23 | PC.NURSE ---
Left chest pain, headache and shortness of breath, nausea started this afternoon while he was looking for something around the house with his son. Reports left chest pain now 2/10, improves with counter pressure at the site. Nausea has resolved.
--- NOTE | 2021-06-14 18:58 | ED.CHESTPAIN ---
HPI - Chest Pain General Chief Complaint: Chest Pain Stated Complaint: HARD TO BREATHE/ELEVATED HEART/HEADACHE/CHEST PAIN Time Seen by Provider: 06/14/21 18:02 Source: patient Mode of arrival: Ambulatory Limitations: no limitations History of Present Illness HPI narrative: Patient is very pleasant 35-year-old male that complains sudden onset of left-sided chest pain with right-sided headache this afternoon. He states he was very stressed because he was trying to gather items for a customer that was coming from out of town that was going to purchase an item from he and his son. They could not find the item. No history of panic attacks or anxiety. Symptoms have resolved. He was dizzy and lightheaded with it. No syncope. Pain did not radiate. No confusion. Denies any history of high blood pressure hypercholesteremia. Does not smoke. No family history of coronary disease or aneurysm in chest or abdomen or brain. No recent illness. Denies abdominal pain or back pain. No numbness tingling or weakness. No diaphoresis. He did feel short of breath briefly. In no distress at this time. Related Data Home Medications Medication Instructions Recorded Confirmed valacyclovir 1 gram tablet 1,000 mg PO DAILY PRN tab 08/09/20 01/16/21 Allergies Allergy/AdvReac Type Severity Reaction Status Date / Time Sulfa (Sulfonamide Allergy Verified 06/14/21 14:20 Antibiotics) Review of Systems Review of Systems Narrative: GENERAL: Denies chills, fatigue, malaise, fever, sweats. HEENT: Denies sinus pain, ear pain, sore throat RESPIRATORY: Denies dyspnea, cough CARDIOVASCULAR: Complaint chest pain, denies palpitations GASTROINTESTINAL: Denies nausea, vomiting, abdominal pain : Denies dysuria, frequency, hematuria MUSCULOSKELETAL: denies muscle or bony pain SKIN: Denies rash, skin lesions NEUROLOGIC: Denies weakness, numbness, complaints of dizziness/headache Patient History Medical History Healthy adult male Nasal congestion Unwanted fertility Surgical History Status post wisdom tooth extraction Family History Father Cancer Social History marital status: number of children: 2 Smoking Status: Never smoker alcohol intake: current substance use type: does not use caffeine: Yes Smoking Status: Never smoker alcohol intake frequency: holidays/special occasions only Substance Use Type: does not use Exam Narrative Exam Narrative: GENERAL: in no distress, not toxic not dyspneic HEAD: Normocephalic. EYES: Pupils equal round No scleral icterus. No injection no discharge ENT: Mucous membranes moist. NECK: Trachea midline. CARDIOVASCULAR: Regular rate and rhythm without murmurs strong bilateral carotid/radial/posterior tibial pulses. RESPIRATORY: Clear to auscultation. Breath sounds equal bilaterally. No wheezes, rales, or rhonchi. GASTROINTESTINAL: Abdomen soft, non-tender EXTREMITIES: No gross deformities. BACK: No flank tenderness. NEURO: AOx4. SKIN: Warm and dry PSYCH: Not anxious, is cooperative Initial Vital Signs Initial Vital Signs: Vital Signs Temperature 97.8 F 06/14/21 14:20 Pulse Rate 61 06/14/21 14:20 Respiratory Rate 15 06/14/21 14:20 Blood Pressure 138/92 H 06/14/21 14:20 Pulse Oximetry 98 06/14/21 14:20 Scores HEART Score Heart Score history: Slightly Suspicious Heart Score EKG: Normal Heart Score Age: < 45 years old Heart Score risk factors: No known risk factors Heart Score troponin: < or = to normal limit Heart Score Total: 0 Course Course Course Narrative: Remains asymptomatic during course of stay Orders Ordered: Discontinued Medications Sodium Chloride (Normal Saline 0.9%) 1,000 mls @ 1,000 mls/hr IV BOLUS ONE Stop: 06/14/21 19:57 Last Infusion: 06/14/21 20:23 Dose: 0 mls/hr Documented by: Admin: 06/14/21 19:07 Dose: 1,000 mls/hr Documented by: CY Reevaluation(s) Reevaluation #1: Reviewed results with patient. He states he was very anxious and panicking when he could not find the parts that needed to be sold. He feels much better here. Time: 20:51 Vital Signs Vital signs: Vital Signs - 8 hr 06/14/21 14:20 06/14/21 17:12 06/14/21 17:13 Temperature 97.8 F Pulse Rate 61 66 66 Respiratory Rate 15 Blood Pressure 138/92 H 132/95 H Pulse Oximetry 98 99 99 06/14/21 17:30 06/14/21 17:54 06/14/21 18:00 Temperature Pulse Rate 72 57 L 66 Respiratory Rate 22 18 20 Blood Pressure 133/81 146/72 H 133/81 Pulse Oximetry 98 99 98 06/14/21 18:30 06/14/21 18:38 06/14/21 19:00 Temperature Pulse Rate 67 75 65 Respiratory Rate 21 19 20 Blood Pressure 129/76 144/85 H 140/82 Pulse Oximetry 98 98 98 MDM - Chest Pain Differential Diagnosis Differential diagnosis: Likely other (Anxiety/chest pain/atypical chest pain/dissection/pulmonary embolism) Lab Data Result diagrams: 06/14/21 14:26 06/14/21 14:26 Labs: Lab Results 06/14/21 06/14/21 06/14/21 Range/Units 14:26 14:26 19:38 WBC 6.1 (4.5-11.0) X10^3/uL RBC 4.98 (4.5-5.9) X10^6/uL Hgb 14.9 (13.5-17.5) g/dL Hct 44.0 (41-53) % MCV 88.3 (80-100) fL MCH 29.9 (26-34) PG MCHC 33.8 (30-36) % RDW 13.5 (11.6-14.8) % Plt Count 224 (150-400) X10^3/uL Neut % (Auto) 61.4 (50-75) % Lymph % (Auto) 30.3 (25-40) % [place] % (Auto) 6.9 (3-14) % Eos % (Auto) 0.8 L (2-4) % Baso % (Auto) 0.6 (0-2) % Neut # (Auto) 3800 (7837-4728) /uL Lymph # (Auto) 1900 (3059-1464) /uL [place] # (Auto) 400 (0-900) /uL Eos # (Auto) 0 (0-450) /uL Baso # (Auto) 0 (0-100) /uL Sodium 138 (137-145) mmol/L Potassium 4.3 (3.4-5.1) mmol/L Chloride 104 (98-107) mmol/L Carbon Dioxide 23 (22-32) mmol/L BUN 14 (9-20) mg/dL Creatinine 0.90 (0.66-1.25) mg/dL Estimated GFR > 60.0 (>60) mL/min BUN/Creatinine Ratio 15.6 (6-22) Glucose 94 (70-100) mg/dL Calcium 9.4 (8.4-10.2) mg/dL Total Bilirubin 0.5 (0.2-1.3) mg/dL AST 34 (17-59) IU/L ALT 12 (<50) IU/L Alkaline Phosphatase 42 (38-126) U/L Total Creatine Kinase 120 (55-170) U/L CK-MB (CK-2) 0.53 (<2.37) ng/mL CK-MB (CK-2) Rel Index 0.4 L (1.5-5.0) % Troponin I < 0.012 < 0.012 (0.01-0.034) ng/mL Total Protein 7.7 (6.3-8.2) g/dL Albumin 4.6 (3.5-5.0) g/dL Globulin 3.1 (1.7-4.1) g/dL Albumin/Globulin Ratio 1.5 (1.0-2.8) Lipase 122 (23-300) U/L Imaging Data Chest x-ray: Radiologist's Impression: [address] [id number] ReportSigned Patient: Brandon Jessica [facility]#: [id number]: 1985Acct:[id number]/Sex: 35 / MDate of Service: 06/14/21Loc: EDAccession Number: [id number] Procedure: XR chest 1V Ordering Provider: Kim Whittington D.O. PROCEDURE: XR CHEST 1V INDICATIONS: chest pain TECHNIQUE: One view of the chest was acquired. COMPARISON: None. FINDINGS: Surgical changes and devices: None. Lungs and pleura: Lungs are clear. No pleural effusions or pneumothorax. Mediastinum: Mediastinal contours appear normal. Heart size is normal. Bones and chest wall: No suspicious bony lesions. Overlying soft tissues appear unremarkable. IMPRESSION: No evidence acute pulmonary process. Dictated by: Genaro Oliveira M.D. on 06/14/2021 at 15:01 Approved by: Genaro Oliveira M.D. on 06/14/2021 at 15:01 CT scan - chest: Radiologist's Impression: [address] [id number] Scan ReportSigned Patient: Brandon Jessica DMR#: [id number]: 1985Acct:[id number]/Sex: 35 / MDate of Service: 06/14/21Loc: EDAccession Number: [id number] Procedure: CT angio chest PE protocol Ordering Provider: Ze Rosado MD PROCEDURE: CT ANGIO CHEST PE PROTOCOL INDICATIONS: Chest pain/dyspnea TECHNIQUE: After the administration of intravenous contrast, 2 mm thick sections acquired from the pulmonary apices to the posterior costophrenic angles. 3-dimensional maximum intensity projection (MIP) coronal and sagittal reformats were then acquired through the thorax. For radiation dose reduction, the following was used: automated exposure control, adjustment of mA and/or kV according to patient size. COMPARISON: None. FINDINGS: Image quality: Excellent. Pulmonary arteries: Pulmonary arteries are normal in size, and demonstrate no intraluminal filling defects to suggest central pulmonary embolism. Lungs and pleura: Lungs are clear. No pleural effusions or pneumothorax. Central and peripheral airways are patent. Mediastinum: Heart size is normal, without pericardial effusion. No mediastinal or hilar adenopathy. Thoracic aorta is normal in caliber and enhancement. Esophagus is normal in caliber, without hiatal hernia. Bones and chest wall: No suspicious bony lesions. Ribs and thoracic spine appear intact throughout. Thyroid gland is normal. No axillary or supraclavicular adenopathy. Abdomen: Visualized upper abdominal solid organs appear normal in the early arterial phase of enhancement. IMPRESSION: 1. No pulmonary embolism. 2. No acute abnormality of the chest. Dictated by: David Freeman M.D. on 06/14/2021 at 20:13 Approved by: David Freeman M.D. on 06/14/2021 at 20:17 ECG Data Interpretation: Normal sinus rhythm rate [address] elevation or depression MDM Narrative Medical decision making narrative: Appropriate for discharge home. Patient has low heart score and risk factors. Patient states he felt very anxious and was a panic attack when he could not find the parts to be sold. return precautions reviewed with patient. Exam and laboratory studies and imaging reassuring. Patient desires discharge home. Two sets of troponin completed. Discharge Plan Departure Patient Disposition: Home Clinical Impression: Anxiety Chest pain Qualifiers: Chest pain type: unspecified Qualified Code(s): R07.9 - Chest pain, unspecified Activity Restrictions/Additional Instructions: Return if worse if any questions or concerns. See family doctor in a week for recheck. Exam and results here are reassuring. Prescriptions: No Action valacyclovir 1 gram tablet 1,000 mg PO DAILY PRNRF: 0 Referrals: Scot Morris MD [Primary Care Provider] -
[2021-06-14] MEDS: SODIUM CHLORIDE 0.9% 1,000 ML 1000 ML IV (19:07)
[2021-06-14 20:08] LABS: Troponin I < 0.012 ng/mL (0.01-0.034)
== END 2021-06-14 20:53 | disposition home or self-care (01) ==
PROVIDERS: Emergency Medicine; Emergency Provider Emergency Medicine; PCP Internal Medicine
DX: F41.9 Anxiety disorder, unspecified (principal); R07.9 Chest pain, unspecified; R51.9 Headache, unspecified
CPT/HCPCS: 36415; 71045; 71275; 80053; 82550; 82553; 83690; 84484; 85025; 93005; 96360; 99284

== ENCOUNTER → 2021-11-02 12:45 | Outpatient (CLI) | payer OTHER, SELFPAY ==
[2021-11-02 14:05] LABS: COVID19 -Nasal RAPID Negative (Negative)
== END ==
PROVIDERS: PCP Internal Medicine; Referring Provider Internal Medicine; Visit Provider Internal Medicine
DX: Z20.822 Contact with and (suspected) exposure to COVID-19 (principal)
CPT/HCPCS: 87635; C9803

== ENCOUNTER → 2021-11-02 12:49 | Outpatient (CLI) | payer OTHER, SELFPAY ==
--- NOTE | 2021-11-08 10:06 | PM.PFT.1 ---
Pulmonary Function Test Referral & Results Date Patient Seen: 11/02/21 Requesting provider: Scot Morris Results: The spirometry demonstrates an FVC of 4.82 L which is 95% of predicted. The FEV1 was measured at 3.96 L which is 97% of predicted. The FEV1/FVC ratio was 82 which is 102% of predicted. Following the administration of bronchodilator there was no appreciable change Lung volumes show an SVC of 4.54 L which is 93% of predicted. The diffusing capacity was measured at 29.06 which is 98% of predicted. The maximum voluntary ventilation was minimally reduced Interpretation: This study demonstrates normal pulmonary function however the minimal reduction in maximum voluntary ventilation in the absence of any spirometric abnormality might suggest the presence of neuromuscular disease Clinical correlation suggested
== END ==
PROVIDERS: PCP Internal Medicine; Referring Provider Internal Medicine; Visit Provider Internal Medicine
DX: R06.02 Shortness of breath (principal); Z20.822 Contact with and (suspected) exposure to COVID-19
CPT/HCPCS: 87635; 94060; 94726; 94729; C9803

== ENCOUNTER → 2022-10-19 11:26 | Outpatient (CLI) | payer OTHER, SELFPAY ==
[2022-10-19 13:16] LABS: Influenza A - CEPHEID Flu A POSITIVE (NEGATIVE); Influenza B - CEPHEID Flu B NEGATIVE (NEGATIVE); Respiratory Syncytial Virus Negative (Negative)
[2022-10-19 13:30] LABS: COVID-19 CEPHEID 4-PLEX PCR Negative (Negative)
== END ==
PROVIDERS: PCP Internal Medicine; Visit Provider Registered Nurse
DX: J02.9 Acute pharyngitis, unspecified (principal)
CPT/HCPCS: 0241U

== ENCOUNTER → 2023-09-05 14:23 | Outpatient (CLI) | payer OTHER, SELFPAY ==
[2023-09-05 16:29] LABS: Add Manual Diff / Slide Review NO; Basophils Absolute Auto 0 /uL (0-100); Basophils Percent Auto 0.3 % (0-2); Eosinophils Absolute Auto 100 /uL (0-450); Hematocrit 42.5 % (41-53); Hemoglobin 14.5 g/dL (13.5-17.5); Lymphocytes Absolute Auto 1600 /uL (1100-4500); Lymphocytes Percent Auto 24.9 % (25-40); Mean Corpuscular HGB Conc 34.1 % (30-36); Mean Corpuscular Hemoglobin 30.1 PG (26-34); Mean Corpuscular Volume 88.5 fL (80-100); Monocytes Absolute Auto 600 /uL (0-900); Monocytes Percent Auto 9.1 % (3-14); Neutrophils Absolute Auto 4100 /uL (1500-7000); Neutrophils Percent Auto 64.7 % (50-75); Platelet Count 207 X10^3/uL (150-400); Red Cell Distribution Width 13.1 % (11.6-14.8); White Blood Cell Count 6.3 X10^3/uL (4.5-11.0)
[2023-09-05 16:58] LABS: Alanine Aminotransferase 13 IU/L (<50); Albumin 4.5 g/dL (3.5-5.0); Albumin Globulin Ratio 1.7 (1.0-2.8); Alkaline Phosphatase 47 U/L (38-126); Aspartate Aminotransferase 28 IU/L (17-59); BUN Creatinine Ratio 14.6 (6-22); Bilirubin Total 0.4 mg/dL (0.2-1.3); Blood Urea Nitrogen 14 mg/dL (9-20); Calcium 9.4 mg/dL (8.4-10.2); Carbon Dioxide 28 mmol/L (22-32); Chloride 99 mmol/L (98-107); Cholesterol 151 mg/dL (140-199); Estimated Glomerular Filt Rate > 60 mL/min (>60); Globulin 2.7 g/dL (1.7-4.1); Glucose 81 mg/dL (70-100); HDL Cholesterol 51 mg/dL (40-60); HEMOLYSIS < 15 (0-50); LDL Cholesterol Calculated 89 mg/dL (<100); Potassium 4.1 mmol/L (3.4-5.1); Sodium 136 mmol/L (137-145); Total Protein 7.2 g/dL (6.3-8.2); Triglycerides 56 mg/dL (35-150)
[2023-09-05 17:07] LABS: Free T4, Direct Thyroxine 1.02 ng/dL (0.78-2.19)
[2023-09-12 11:14] LABS: Percent Free Testosterone 2.52 % (1.50-4.20); Testosterone Free 5.01 ng/dL (5.00-21.00); Testosterone Total 198.7 ng/dL (264.0-916.0)
== END ==
PROVIDERS: PCP Internal Medicine; Referring Provider Internal Medicine; Visit Provider Internal Medicine
DX: F32.A Depression, unspecified (principal); R53.83 Other fatigue; R37 Sexual dysfunction, unspecified
CPT/HCPCS: 36415; 80053; 80061; 84402; 84403; 84439; 84443; 85025

== ENCOUNTER → 2024-06-04 12:42 | Outpatient (CLI) | payer BC, SELFPAY | PROVIDERS: PCP Internal Medicine; Visit Provider Student in an Organized Health Care Education/Training Program | DX: J02.9 Acute pharyngitis, unspecified (principal) | CPT/HCPCS: 87070 ==

== ENCOUNTER 2024-06-12 17:42 | Emergency (ER) | payer BC, OTHER, SELFPAY ==
[2024-06-12 17:48] VITALS: BP 165/86; PULSE 60; RESP 16; TEMP 36.7; O2SAT 100; BMI 25.8
--- NOTE | 2024-06-12 18:05 | DI.CT.S_ITS ---
PROCEDURE: CT CERVICAL SPINE WO CON INDICATIONS: head injury yesterday severe headache TECHNIQUE: Noncontrast 3 mm thick sections acquired from the skull base to the T4 level. Sagittal and coronal reformats were then constructed. For radiation dose reduction, the following was used: automated exposure control, adjustment of mA and/or kV according to patient size. COMPARISON: None. FINDINGS: Image quality: Excellent. Bones: No fractures or dislocations. Visualized superior ribs are intact. Soft tissues: Prevertebral soft tissues are normal in thickness. No paravertebral hematomas. No apical pneumothoraces. IMPRESSION: No displaced fracture or traumatic subluxation. Dictated by: Gary Hernandez M.D. on 06/12/2024 at 18:41 Approved by: Gary Hernandez M.D. on 06/12/2024 at 18:42
--- NOTE | 2024-06-12 18:05 | DI.CT.S_ITS ---
PROCEDURE: CT HEAD/BRAIN W CON INDICATIONS: head injury yesterday severe headache TECHNIQUE: 4.5 mm thick angled axial sections acquired from the foramen magnum to the vertex after the administration of intravenous contrast, with coronal and sagittal reformats. For radiation dose reduction, the following was used: automated exposure control, adjustment of mA and/or kV according to patient size. COMPARISON: None. FINDINGS: Image quality: Excellent. CSF Spaces: Basal cisterns are patent. No extra-axial fluid collections. Ventricles are normal in size and shape. Brain: No midline shift. No intracranial bleeds or masses. No abnormal intracranial enhancement. Zimmer-white interface appears normal. Skull and face: Calvarium and visualized facial bones appear intact, without suspicious lesions. Sinuses: Mild diffuse paranasal sinus mucosal thickening. The mastoids are clear. IMPRESSION: No acute intracranial abnormalities. Dictated by: Gary Hernandez M.D. on 06/12/2024 at 18:56 Approved by: Gary Hernandez M.D. on 06/12/2024 at 18:57
--- NOTE | 2024-06-12 18:08 | ED_ITS ---
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 Today around 1:00 p.m. he noticed the pain was getting worse he complains of the worst headache of his life. He is begun vomiting and he complains of C1 and C2 cervical spine pain without significant paraspinous were trapezius muscle spasm. There has been no other injuries. He is not complaining of visual changes, no other acute neurologic complaints, he does not have a history of migraine. He notes that he is on the last few days of a course of amoxicillin for strep C. He states that he is feeling 100% normal for the last number of days. No fevers. Related Data Previous Rx's Medication Instructions Recorded amoxicillin 500 mg capsule 500 mg PO BID 10 days #20 caps 06/08/24 ondansetron 4 mg disintegrating 4 mg PO Q8H PRN nausea and 06/12/24 tablet vomiting #14 tabs oxycodone-acetaminophen 5 mg-325 1 tab PO Q6H PRN pain #10 tabs 06/12/24 mg tablet Allergies Allergy/AdvReac Type Severity Reaction Status Date / Time Sulfa (Sulfonamide Allergy Verified 06/12/24 17:52 Antibiotics) Review of Systems Review of Systems Narrative: Pertinent positive and negative findings as per HPI Patient History Medical History Depression Irritable bowel syndrome Healthy adult male Surgical History Status post wisdom tooth extraction Family History Father Cancer Social History marital status: number of children: 2 Smoking Status: Never smoker alcohol intake: current substance use type: does not use caffeine: Yes Smoking Status: Never smoker alcohol intake frequency: holidays/special occasions only Substance Use Type: does not use Exam Initial Vital Signs Initial Vital Signs: Vital Signs Temperature 98.0 F 06/12/24 17:48 Pulse Rate 60 06/12/24 17:48 Respiratory Rate 16 06/12/24 17:48 Blood Pressure 165/86 H 06/12/24 17:48 Pulse Oximetry 100 06/12/24 17:48 Oxygen Delivery Method Room Air 06/12/24 17:48 General: Appears uncomfortable, sitting forward holding his head, complains of forehead pain, nausea HEENT: Tenderness over the forehead without obvious skull fracture contusion. Pupils are equal and reactive Cervical spine: Tenderness at C1-C2 without occipital insertion tenderness, paraspinous spasm or trapezius muscle tenderness Respiratory: Able to speak in full sentences, no obvious respiratory distress Skin: No obvious rashes, warm and dry Neurologic: Grossly intact no obvious asymmetries or abnormalities Psych: appropriate insight and affect, cooperative Course Orders Ordered: ED Orders 06/12/24 18:05 CT cervical spine wo con Stat CT head/brain w con Stat Hydromorphone HCl (Hydromorphone 0.5 Mg Inj) 0.5 mg IV Q15MIN PRN PRN Reason: Pain, Last Admin: 06/12/24 18:36 Dose: 0.5 mg Documented By: Discontinued Medications Sodium Chloride (Normal Saline 0.9%) 1,000 mls @ 1,000 mls/hr IV BOLUS ONE Stop: 06/12/24 19:07 Last Admin: 06/12/24 18:36 Dose: 1,000 mls/hr Documented By: Ondansetron HCl (Ondansetron 4 Mg/2 Ml Inj) 4 mg IV NOW ONE Stop: 06/12/24 18:09 Last Admin: 06/12/24 18:36 Dose: 4 mg Documented By: Vital Signs Vital signs: Vital Signs - 8 hr 06/12/24 17:48 Temperature 98.0 F Pulse Rate 60 Respiratory Rate 16 Blood Pressure 165/86 H Pulse Oximetry 100 Oxygen Delivery Method Room Air MDM - Head Injury MDM Narrative Medical decision making narrative: CC: Head injury approximately 28 hours ago, increasing pain, worse pain of his life. Nausea and vomiting Complicating co-morbidities: Last days of the amoxicillin for strep see Data collected from: patient Differential considered: Intracranial hemorrhage, severe concussion, postconcussion syndrome, cervical spine injury Exam documented above, pertinent findings include: Complaining of ?worst headache of his life? isolated C1-C2 tenderness. Imaging studies independently reviewed: CT scan of the cervical spine does not show any acute fracture CT scan of the head does not show any intracranial hemorrhage Treatments: Fluid, Zofran, Dilaudid Re-evaluations: Discussion: 38-year-old gentleman with significant forehead contusion causing severe headache. With the worse headache of his life, CT scan is indicated and with the cervical point tenderness CT scan of the C-spine is also indicated. Fortunately both are unremarkable. We talked about ibuprofen and Tylenol for pain control, he will be given brief course of Percocet to use should pain be severe. As this is musculoskeletal pain whether migraine pain I do believe that actual pain medication is going to be most appropriate. He is given Zofran until help with persistent nausea and we spent quite a bit of time discussing postconcussion syndrome symptoms to expect. Printed information is also given. No indication for additional imaging, blood work or hospitalization at this time. Questions are answered he is safe for discharge Discharge Plan Departure Patient Disposition: Home Clinical Impression: Concussion without loss of consciousness Qualifiers: Encounter type: initial encounter Qualified Code(s): S06.0X0A - Concussion without loss of consciousness, initial encounter Acute head injury Qualifiers: Encounter type: initial encounter Qualified Code(s): S09.90XA - Unspecified injury of head, initial encounter Instructions: Concussion, DI for Postconcussion Syndrome Activity Restrictions/Additional Instructions: Thank you for coming in today Fortunately, there was no bleeding inside your head and your cervical spine is nice and normal. Based on the headache, the nausea and remainder of your symptoms you do have a significant concussion. I have given you information on postconcussion syndrome. My recommendation for the next at least 72 hours is cognitive rest. Cognitive rest means, simply sitting, resting, watching the clouds drift by in the waves role in. Literally. Avoiding screen time, reading, TV shows etcetera will help your brain heal faster. Using 400 mg of ibuprofen (2 [id number] pills) and 1 Tylenol every 6 hours can be very helpful in controlling pain. For severe pain you can use 400 mg of ibuprofen and 1 Percocet. If you do choose to use Percocet please remember it is a narcotic, it will cause constipation and there is a potential for addiction. If you find that symptoms are worsening or changing, please feel free to return to the ER Prescriptions: New oxycodone-acetaminophen 5-325 mg tablet 1 tab PO Q6H PRN (Reason: pain) Qty: 10 0RF ondansetron 4 mg tablet,disintegrating 4 mg PO Q8H PRN (Reason: nausea and vomiting) Qty: 14 0RF No Action amoxicillin 500 mg capsule 500 mg PO BID 10 Days Qty: 20 0RF Referrals: Scot Morris MD [Primary Care Provider] - Stand Alone Forms: Patient Portal/API, Work Release Note
[2024-06-12] MEDS: HYDROMORPHONE 0.5 MG INJ IV (18:36)
[2024-06-12] MEDS: SODIUM CHLORIDE 0.9% 1,000 ML 1000 ML IV (18:36)
[2024-06-12] MEDS: ONDANSETRON 4 MG/2 ML INJ IV (18:36)
[2024-06-12 19:36] VITALS: BP 135/83; PULSE 70; RESP 14; O2SAT 98
== END 2024-06-12 19:38 | disposition home or self-care (01) ==
PROVIDERS: Emergency Provider Emergency Medicine; PCP Internal Medicine
DX: S06.0X0A Concussion without loss of consciousness, initial encounter (principal); R11.2 Nausea with vomiting, unspecified; W22.8XXA Striking against or struck by other objects, initial encounter
CPT/HCPCS: 36415; 70460; 72125; 96361; 96374; 96375; 99284; J1170; J2405

== ENCOUNTER → 2024-09-02 15:01 | Outpatient (CLI) | payer BC, OTHER, MEDICAID, SELFPAY ==
[2024-09-02 15:50] LABS: COVID-19 CEPHEID 4-PLEX PCR Negative (Negative); Influenza A - CEPHEID Flu A NEGATIVE (NEGATIVE); Influenza B - CEPHEID Flu B NEGATIVE (NEGATIVE); Respiratory Syncytial Virus Negative (Negative)
== END ==
PROVIDERS: PCP Internal Medicine; Visit Provider Nurse Practitioner Family
DX: R50.9 Fever, unspecified (principal)
CPT/HCPCS: 0241U

== ENCOUNTER → 2024-10-02 10:36 | Outpatient (CLI) | payer BC, OTHER, MEDICAID, SELFPAY ==
--- NOTE | 2024-10-02 10:39 | DI.RAD.S_ITS ---
PROCEDURE: XR KNEE LT 3V INDICATIONS: chronic left shoulder pain, chronic left knee pain TECHNIQUE: 3 views of the knee were acquired. COMPARISON: None. FINDINGS: Bones: No fractures or dislocations. No patellar subluxation. No suspicious bony lesions. Soft tissues: No joint effusion. No suspicious soft tissue calcifications. IMPRESSION: No acute left knee fracture or dislocation. Joint spaces are well preserved. No significant joint effusion. Dictated by: Jeronimo Tinsley M.D. on 10/02/2024 at 19:44 Approved by: Jeronimo Tinsley M.D. on 10/02/2024 at 19:44
--- NOTE | 2024-10-02 10:39 | DI.RAD.S_ITS ---
PROCEDURE: XR SHOULDER LT MIN 2V INDICATIONS: chronic left shoulder pain, chronic left knee pain TECHNIQUE: 3 views of the shoulder were acquired. COMPARISON: None. FINDINGS: Bones: No fractures or dislocations. Mild acromioclavicular joint osteoarthritic changes are seen. No suspicious bony lesions. Visualized ribs appear intact. Soft tissues: No suspicious soft tissue calcifications. IMPRESSION: Mild acromioclavicular joint osteoarthritis. No shoulder fracture or dislocation. No gross soft tissue abnormalities. Dictated by: Jeronimo Tinsley M.D. on 10/02/2024 at 19:44 Approved by: Jeronimo Tinsley M.D. on 10/02/2024 at 19:50
== END ==
PROVIDERS: PCP Family Medicine; Referring Provider Family Medicine; Visit Provider Family Medicine
DX: M19.012 Primary osteoarthritis, left shoulder (principal); M25.562 Pain in left knee; M25.512 Pain in left shoulder; G89.29 Other chronic pain
CPT/HCPCS: 73030; 73562